=== PATIENT | male | born 1960 | race Caucasian/White ===

== ENCOUNTER 2019-10-29 17:24 | Emergency (ER) | payer OTHER, BC ==
[~2019-10-29] VITALS: Ht 190.5 cm; Wt 161.9 kg
[~2019-10-29 17:24] MED LIST: ASPIRIN81 M1 PO; OMEPRAZOLE20 MG PO; THE MEDICINE S400 IU PO; TOPROL XL25 MG PO; ZESTRIL,PRINIVI10 MG PO; ZOFRAN4 MG PO
== END 2019-10-29 18:05 | disposition home or self-care (01) ==
LOC: ED 17:24
DX: S61.213A Laceration without foreign body of left middle finger without damage to nail, initial encounter (principal); I10 Essential (primary) hypertension; Z79.899 Other long term (current) drug therapy; Z86.718 Personal history of other venous thrombosis and embolism; Z90.49 Acquired absence of other specified parts of digestive tract; W26.0XXA Contact with knife, initial encounter; Y93.G9 Activity, other involving cooking and grilling; Y92.89 Other specified places as the place of occurrence of the external cause; Y99.8 Other external cause status

== ENCOUNTER 2021-08-02 10:17 | Inpatient (IN) | payer OTHER ==
[2021-08-02] VITALS (12 sets, daily range): BP systolic 133–193; BP diastolic 57–90
[~2021-08-02] VITALS: Ht 190.5 cm; Wt 167.9 kg
[2021-08-02 10:35] LABS: BASO % 0.4 % (0.0-1.0); EOS # 0.3 10*3/uL (0.0-0.4); EOS % 3.7 % (1.0-4.0); HEMATOCRIT 37.8 % (42.0-52.0); LYMPH # 2.9 10*3/uL (1.3-4.4); LYMPH % 36.1 % (27.0-41.0); MEAN CELL VOLUME 92.9 fl (80.0-94.0); MEAN CORPUSCULAR HGB 31.9 pg (27.0-31.0); MEAN CORPUSCULAR HGB CONC 34.4 g/dl (33.0-37.0); MEAN PLATELET VOLUME 12.5 fl (9.6-12.3); MONO # 0.9 10*3/uL (0.1-1.0); MONO % 10.8 % (3.0-9.0); NEUT # 3.9 10*3/uL (2.3-7.9); NEUT % 48.5 % (47.0-73.0); PLATELET COUNT AUTOMATED 259 10*3/uL (130-400); RED BLOOD COUNT 4.07 10*6/uL (4.50-5.90); RED CELL DISTRI WIDTH 12.9 % (0-14.5)
[2021-08-02 10:56] LABS: ALBUMIN 4.1 gm/dl (3.1-4.5); ALKALINE PHOSPHATASE 72 U/L (45-117); BUN 14 mg/dl (7-24); CHLORIDE 106 mmol/L (98-107); CREATININE 0.92 mg/dL (0.70-1.30); POTASSIUM 4.5 mmol/L (3.5-5.1); SGOT/AST 32 IU/L (3-35); SGPT/ALT 61 U/L (12-78); SODIUM 137 mmol/L (136-145); TOTAL PROTEIN 7.4 gm/dL (6.4-8.2)
[2021-08-02 11:06] LABS: TROPONIN I < 0.015 ng/ml (<0.045)
[2021-08-02] MEDS ORDERED: METFORMIN HYDR500 MG PO (18:02)
[2021-08-03] MEDS ORDERED: Lopressor25 MG PO (01:19)
[2021-08-03 07:06] LABS: BASO % 0.5 % (0.0-1.0); EOS # 0.3 10*3/uL (0.0-0.4); EOS % 4.2 % (1.0-4.0); HEMATOCRIT 37.6 % (42.0-52.0); LYMPH # 2.9 10*3/uL (1.3-4.4); LYMPH % 37.4 % (27.0-41.0); MEAN CELL VOLUME 94.5 fl (80.0-94.0); MEAN CORPUSCULAR HGB 31.9 pg (27.0-31.0); MEAN CORPUSCULAR HGB CONC 33.8 g/dl (33.0-37.0); MEAN PLATELET VOLUME 12.1 fl (9.6-12.3); MONO # 0.7 10*3/uL (0.1-1.0); MONO % 9.7 % (3.0-9.0); NEUT # 3.7 10*3/uL (2.3-7.9); NEUT % 47.9 % (47.0-73.0); PLATELET COUNT AUTOMATED 239 10*3/uL (130-400); RED BLOOD COUNT 3.98 10*6/uL (4.50-5.90); WHITE BLOOD COUNT 7.6 10*3/uL (4.8-10.8)
[2021-08-03 07:19] LABS: ALBUMIN 3.3 gm/dl (3.1-4.5); BUN 17 mg/dl (7-24); CHLORIDE 108 mmol/L (98-107); CREATININE 0.82 mg/dL (0.70-1.30); POTASSIUM 4.1 mmol/L (3.5-5.1); SGOT/AST 26 IU/L (3-35); SGPT/ALT 57 U/L (12-78); SODIUM 139 mmol/L (136-145); TOTAL PROTEIN 6.6 gm/dL (6.4-8.2)
[2021-08-03 07:20] LABS: ACT PARTIAL THROMBO TIME 25.9 SECONDS (20.0-32.1)
[2021-08-03 07:26] LABS: ALKALINE PHOSPHATASE 68 U/L (45-117); FREE T4 0.96 ng/dl (0.76-1.46)
[2021-08-03 08:00] VITALS: BP 172/76
[2021-08-03 08:08] LABS: VITAMIN D, 25-HYDROXY 56.1 ng/mL (30-100)
[2021-08-03 09:02] VITALS: BP 162/74
[2021-08-03 12:00] VITALS: BP 155/64
[2021-08-03] MEDS ORDERED: NORVASC10 MG PO (15:29)
[2021-08-03 16:00] VITALS: BP 140/70
== END 2021-08-03 18:04 | disposition home or self-care (01) | DRG 392 ==
LOC: ED 10:17 → EDHOLD 13:02 → 5E 13:02 → EDHOLD 16:20 → 5E 17:36
PROVIDERS: Emergency Medicine; Internal Medicine; ADMIT Internal Medicine; ATTEND Internal Medicine
PROC: 4A02XM4 Measurement of Cardiac Total Activity, External Approach (ICD-10-PCS; principal; 2021-08-03)
PROC: 3E073KZ Introduction of Other Diagnostic Substance into Coronary Artery, Percutaneous Approach (ICD-10-PCS; 2021-08-03)
DX: K21.9 Gastro-esophageal reflux disease without esophagitis (principal); R00.1 Bradycardia, unspecified; E83.41 Hypermagnesemia; D64.9 Anemia, unspecified; E11.65 Type 2 diabetes mellitus with hyperglycemia; Z90.49 Acquired absence of other specified parts of digestive tract; Z82.49 Family history of ischemic heart disease and other diseases of the circulatory system; Z79.82 Long term (current) use of aspirin; Z79.84 Long term (current) use of oral hypoglycemic drugs; Z79.899 Other long term (current) drug therapy

== ENCOUNTER → 2021-10-03 | Outpatient (CLI) | payer OTHER ==
[~2021-10-03] MED LIST changes: +Lopressor25 MG PO; +METFORMIN HYDR500 MG PO; +NORVASC10 MG PO
== END | disposition home or self-care (01) ==
LOC: COVID19 15:02
PROVIDERS: ATTEND Internal Medicine
DX: Z11.52 Encounter for screening for COVID-19 (principal)

== ENCOUNTER 2024-07-08 15:34 | Emergency (ER) | payer OTHER ==
[~2024-07-08] VITALS: Ht 190.5 cm; Wt 157.4 kg
[~2024-07-08 15:34] MED LIST changes: -THE MEDICINE S400 IU PO; +VITAMIN D3125 MCG PO
[2024-07-08] MEDS ORDERED: SODIUM CHLORIDE 0.9% 1,000 ML IV ONE (18:35)
[2024-07-08] MEDS ORDERED: Ondansetron Hydrochloride 4 MG/2 ML VIAL IV ONE (18:35)
[2024-07-08 18:47] LABS: HEMATOCRIT 43.6 % (42.0-52.0); MEAN CELL VOLUME 96.9 fl (80.0-94.0); MEAN CORPUSCULAR HGB 33.1 pg (27.0-31.0); MEAN CORPUSCULAR HGB CONC 34.2 g/dl (33.0-37.0); MEAN PLATELET VOLUME 12.2 fl (9.6-12.3); PLATELET COUNT AUTOMATED 337 10*3/uL (130-400); RED CELL DISTRI WIDTH 13.2 % (0-14.5); WHITE BLOOD COUNT 16.9 10*3/uL (4.8-10.8)
[2024-07-08 18:49] LABS: MANUAL DIFF REFLEX YES
[2024-07-08] MEDS ORDERED: IOHEXOL 300 MG/ML 100 ML VIAL IV ONE (18:50)
[2024-07-08 19:03] LABS: POTASSIUM 4.2 mmol/L (3.4-5.1)
[2024-07-08 19:14] LABS: BILIRUBIN Negative (Negative); BLOOD Negative (Negative); CLARITY Clear (Clear); COLOR Yellow (Yellow); GLUCOSE 3+ (Negative); KETONE Trace (Negative); LEUKO ESTERASE Negative (Negative); NITRITE Negative (Negative); SPECIFIC GRAVITY >= 1.030 (1.001-1.030)
[2024-07-08 19:17] LABS: BASOPHILS 1 % (0-1); BURR CELLS MODERATE; PLATELET SUFFICIENCY NORMAL (NORMAL); TOTAL CELLS COUNTED 100 #CELLS
[2024-07-08 19:25] LABS: BACTERIA 1+; CALCIUM OXALATE CRYSTALS Trace
[2024-07-10] MEDS ORDERED: OZEMPIC0.25 MG/03 SQ (15:07)
[2024-07-10] MEDS ORDERED: Lopressor25 MG PO (15:07)
[2024-07-10] MEDS ORDERED: CHLORTHALIDONE25 MG PO (15:08)
[2024-07-11] MEDS ORDERED: ATORVASTATIN CA20 M1 PO (08:12)
[2024-07-11] MEDS ORDERED: JARDIANCE25 MG PO (08:12)
[2024-07-11] MEDS ORDERED: CELECOXIB200 M1 PO (08:14)
[2024-07-11] MEDS ORDERED: ARTHRITIS PAIN650 MG PO (08:15)
[2024-07-11] MEDS ORDERED: LISINOPRIL40 MG PO (11:34)
[2024-07-12] MEDS ORDERED: METRONIDAZOLE500 M1 PO (11:29)
[2024-07-12] MEDS ORDERED: CIPRO500 MG PO (11:29)
== END 2024-07-08 22:49 | disposition home or self-care (01) ==
LOC: ED 15:34
PROVIDERS: Physician Assistant
DX: K52.9 Noninfective gastroenteritis and colitis, unspecified (principal); Z79.899 Other long term (current) drug therapy; Z79.84 Long term (current) use of oral hypoglycemic drugs; Z79.82 Long term (current) use of aspirin; Z98.890 Other specified postprocedural states; Z90.49 Acquired absence of other specified parts of digestive tract; Z90.89 Acquired absence of other organs

== ENCOUNTER → 2024-07-09 | Outpatient (CLI) | payer OTHER, BC ==
[~2024-07-09] MED LIST changes: +ARTHRITIS PAIN650 MG PO; +ATORVASTATIN CA20 M1 PO; +CELECOXIB200 M1 PO; +CHLORTHALIDONE25 MG PO; +CIPRO500 MG PO; +JARDIANCE25 MG PO; +LISINOPRIL40 MG PO; +METRONIDAZOLE500 M1 PO; +OZEMPIC0.25 MG/03 SQ
== END | disposition home or self-care (01) ==
LOC: LAB 14:05
PROVIDERS: ATTEND Physician Assistant
DX: A09 Infectious gastroenteritis and colitis, unspecified (principal)

== ENCOUNTER 2024-10-14 16:44 | Emergency (ER) | payer OTHER, BC ==
[~2024-10-14] VITALS: Wt 139.3 kg
[2024-10-14] MEDS ORDERED: SODIUM CHLORIDE 0.9% 1,000 ML IV ONE (17:30)
[2024-10-14] MEDS ORDERED: SODIUM POLYSTYRENE SULFONATE 15 GM/60 ML BOT PO ONE (17:35)
[2024-10-14] MEDS ORDERED: LACTULOSE 20 GM/30 ML UDC PO ONE (17:35)
[2024-10-14 17:49] LABS: BASO % 0.3 % (0.0-1.0); EOS # 0.2 10*3/uL (0.0-0.4); EOS % 2.4 % (1.0-4.0); HEMATOCRIT 32.4 % (42.0-52.0); MEAN CELL VOLUME 97.6 fl (80.0-94.0); MEAN CORPUSCULAR HGB 32.8 pg (27.0-31.0); MEAN CORPUSCULAR HGB CONC 33.6 g/dl (33.0-37.0); MEAN PLATELET VOLUME 12.1 fl (9.6-12.3); MONO # 0.7 10*3/uL (0.1-1.0); MONO % 7.8 % (3.0-9.0); NEUT # 4.8 10*3/uL (2.3-7.9); NEUT % 50.6 % (47.0-73.0); PLATELET COUNT AUTOMATED 265 10*3/uL (130-400); RED BLOOD COUNT 3.32 10*6/uL (4.50-5.90); RED CELL DISTRI WIDTH 14.5 % (0-14.5); WHITE BLOOD COUNT 9.5 10*3/uL (4.8-10.8)
[2024-10-14] MEDS ORDERED: IOHEXOL 300 MG/ML 100 ML VIAL IV ONE (18:05)
[2024-10-14 18:08] LABS: BUN 16 mg/dl (9-23); CHLORIDE 107 mmol/L (98-107); LIPASE 62 U/L (12-53); POTASSIUM 4.5 mmol/L (3.4-5.1)
[2024-10-14] MEDS ORDERED: MIRALAX POWDER17 G1 PO (20:10)
== END 2024-10-14 20:21 | disposition home or self-care (01) ==
LOC: ED 16:44
PROVIDERS: Emergency Medicine
DX: K59.00 Constipation, unspecified (principal); D53.9 Nutritional anemia, unspecified; I10 Essential (primary) hypertension; E11.9 Type 2 diabetes mellitus without complications; E78.5 Hyperlipidemia, unspecified; Z79.2 Long term (current) use of antibiotics; Z79.82 Long term (current) use of aspirin; Z79.899 Other long term (current) drug therapy; Z98.890 Other specified postprocedural states; Z90.49 Acquired absence of other specified parts of digestive tract; Z90.89 Acquired absence of other organs